=== PATIENT | female | born 1980 | race Hispanic/Latino ===

== ENCOUNTER 2016-05-17 14:37 | Emergency (ER) | payer OTHER ==
[~2016-05-17] VITALS: Ht 157.5 cm; Wt 98.6 kg
[~2016-05-17 14:37] MED LIST: MTC10T1 PO; NOMED; OXYC-176 PO
[2016-05-17 14:39] VITALS: BP 151/96; PULSE 74; RESP 24; O2SAT 97
--- NOTE | 2016-05-17 14:59 | ED.REPORT ---
HPI-Abd Pain F Under 41 Date of Service May 17, 2016 ED Provider: Issa Keenan MD A 35 year old female presents to the ED complaining of abdominal pain that began earlier this morning. Patient also reports flank pain. Her symptoms have been constant since onset and her pain is not relieved by anything. She denies any similar previous episode of pain. Patient denies fever, dysuria, hematuria or recent injury. Patient had a previous kidney infection but states that this pain is worse. She denies any chance of . Nursing Notes Stated Complaint: RIGHT LOWER BACK AND ABDOMINAL PAIN Chief Complaint: Female Abdominal Pain Nursing Notes Reviewed: Yes Allergies: Coded Allergies: acetaminophen (Verified Adverse Reaction, Severe, vomiting (CAN TAKE PERCOCET & CODEINE), 01/03/13) hydrocodone bitartrate (Verified Adverse Reaction, Severe, vomiting (CAN TAKE PERCOCET & CODEINE), 01/03/13) Scheduled Metoclopramide-Expunged Drug, Do Not Renew! (Reglan-Expunged Drug, Do Not Renew! ) 10 Mg Tablet 10 MG PO QID Oxycodone/APAP-Expunged Drug, Do Not Renew! (Percocet 5/325-Expunged Drug, Do Not Renew!) 1 Each Tablet 1-2 TAB PO Q4H For Pain. Miscellaneous Medications No Historical Medication (No Historical Medication) Ea General Time Seen by MD: 14:58 Chief Complaint Abdominal pain Hx Obtained From: Patient Arrived By: Walk-in Sudden in Onset?: No Onset Occurred: 1 - 4 hours ago Symptom Duration: Since onset Progression since Onset: Constant Location: : Abdomen lower: Flank left: Flank right Quality: Painful Severity: Current: Moderate Severity: Maximum: Moderate Associated with: Denies: Dysuria, Fever, Hematuria Pertinent Negative: Pt denies other symptoms Recent Healthcare: No recent doctor visit, No recent hospitalization Past Medical History Past Medical History None reported. Past Surgical History Reports: Tubal ligation Smoking History Unknown if Ever Smoker Social History Other Social History: Good social support, Local resident Ambulatory Status Independent Review of Systems Constitutional: Denies: Chills, Fever Respiratory: Denies: Shortness of breath Cardiovascular: Denies: Chest pain GI: Reports: Abdominal pain, Denies: Nausea, Vomiting Female: Reports: Flank pain, Denies: Dysuria, Hematuria, Complete sys rev & neg: except as marked. Neurologic: Denies: Change LOC Physical Exam Initial Vital Signs Vital Signs (First) Date Time Temp Pulse Resp B/P Pulse Ox O2 Delivery O2 Flow Rate FiO2 05/17/16 14:39 37.4 74 24 151/96 97 Room Air Initial VS: Reviewed Head / Eyes: Atraumatic, Normocephalic, PERRL Extremities: Vascular intact, Neuro intact, No swelling, No tenderness Skin: Warm, Dry, No cyanosis Neurologic: Alert, Oriented, Nonfocal Psychiatric: Mood/affect normal, Behavior normal, Normal thought content General/Constitutional: Awake, Alert GENERAL: Patient is standing and rocking back and forth Respiratory / Chest: Atraumatic, Breath sounds NL, Breath sounds = bilat Cardiovascular: Heart rate NL, Regular rhythm, Heart sounds NL Abdomen: Atraumatic, Soft, Non-tender Back: Atraumatic Interpretation & Diagnostics Lab Results Interpretation Result Diagram: 05/17/16 1505 05/17/16 1505 Test 05/17/16 15:05 White Blood Count 9.8th/mm3 (3.8-10.1) Red Blood Count 4.97mil/mm3 (3.90-5.20) Hemoglobin 14.2g/dL (12.0-15.6) Hematocrit 41.2% (35.0-46.0) Mean Corpuscular Volume 82.9fL (81-100) Mean Corpuscular Hemoglobin 28.6pg (27.0-35.0) Mean Corpuscular Hemoglobin Concent 34.5% (32.0-37.0) Red Cell Distribution Width 13.2% (12.3-15.4) Platelet Count 177bil/L (150-400) Neutrophils (%) (Auto) 73.9% (40-74) Lymphocytes (%) (Auto) 15.3% (14-46) Monocytes (%) (Auto) 8.2% (4-12) Eosinophils (%) (Auto) 2.0% (0-5) Basophils (%) (Auto) 0.4% (0-3) Sodium Level 139mEq/L (134-144) Potassium Level 3.8mEq/L (3.5-5.2) Chloride Level 104mEq/L (97-108) Carbon Dioxide Level 21mmol/L (18-29) Blood Urea Nitrogen 15mg/dL (6-20) Creatinine 0.73mg/dL (0.57-1.00) Estimat Glomerular Filtration Rate 131mL/min (>59) Glucose Level 108mg/dL (60-99) Calcium Level 8.5mg/dL (8.5-10.1) Total Bilirubin 0.3mg/dL (0.0-1.2) Aspartate Amino Transf (AST/SGOT) 18U/L (0-50) Alanine Aminotransferase (ALT/SGPT) 16U/L (0-32) Alkaline Phosphatase 65U/L (25-150) Total Protein 7.4g/dL (6.4-8.4) Albumin 4.1g/dL (3.4-5.0) Hold Hernandez Top Tube Received (Received) CT Abd / Pelvis Interpretation IMPRESSION: 6 mm distal right ureteral stone causing moderate to severe right-sided hydronephrosis. Dictated by: Patricia Chamberlain MD, PhD on 05/17/2016 at 15:47 Study type: Abdominal CT no contrast Interpretation / Wet Read by: Interpret - Radiologist Re-Eval/Medical Decision Re-Evaluation/Progress : Time of Eval: 15:57 Patient Status: Condition improved Re-Evaluation/Progress Note: Patient is rechecked. She is informed of her CT results and intended treatment plan to discharge. All of her questions are addressed. Counseled Regarding: Diagnosis, Lab results, Need for follow-up, When/why to return to ED Discharge & Departure Primary Impression: Ureterolithiasis Disposition: Home Discharge Condition All VS Reviewed: Yes Condition: Stable Patient Instructions: Nephrolithiasis (ED) Additional Instructions: Thank you for trusting us with your care this evening. Your emergency department evaluation today included interview, examination, lab work and abdominal CT. Your CT results revealed a 6 mm ureteral "kidney" stone. Please take ibuprofen 800 mg every 8 hours and Percocet as directed for more severe pain and do not drink drive or use acetaminophen while on this medication. Schedule an appointment with your primary care provider in the next 2-3 days for a recheck if symptoms have not improved. You may require surgery if the stone does not pass on it's own, please see referral for urologic surgery. Please return to the emergency department for any new or worsening symptoms, especially fever. Referrals: NOPCP (PCP) Rom Luna MD [facility] Scribe Attestation Portions of this note were transcribed by Adeline Mckee. I, Dr. Keenan personally performed the history, physical exam and medical decision-making; I reviewed and confirmed the accuracy of the information in the transcribed note. Signed by: Lexis Riojas, 05/17/16 1600. copies to: Rom Luna MD, Kirk H MD May 17, 2016 14:59 ADELINE MCKEE May 17, 2016 15:06
[2016-05-17] MEDS ORDERED: 0.9% Sodium Chloride 1,000 ML IV ONE (15:04)
[2016-05-17] MEDS ORDERED: HYDROmorphone 0.5 mg/0.5 mL iSecure Syringe IVPUSH PRN (15:05)
[2016-05-17] MEDS ORDERED: Ondansetron 2 mg/mL 2 mL Inj IVPUSH PRN (15:05)
[2016-05-17 15:13] LABS: BASOPHILS % (AUTO) 0.4 % (0-3); MONOCYTES % (AUTO) 8.2 % (4-12); Mean Corpuscular Hemoglobin 28.6 pg (27.0-35.0); Mean Corpuscular Volume 82.9 fL (81-100); NEUTROPHILS % (AUTO) 73.9 % (40-74); Platelet Count 177 bil/L (150-400)
--- NOTE | 2016-05-17 15:52 | DRSVH ---
PROCEDURE: CT KUB ([id number]) INDICATIONS: RIght flank pain TECHNIQUE: Noncontrast 5 mm thick sections acquired from the diaphragms to the symphysis. 5 mm thick coronal an d sagittal reformats were then performed. For radiation dose reduction, the following was used: aut omated exposure control, adjustment of mA and/or kV according to patient size. COMPARISON: None. FINDINGS: Image quality: Excellent. Lung bases: Lung bases are clear of acute opacities. Calcified granulomas noted in the visualized r ight lung. Heart size is normal. Urinary system: Both kidneys are normal in size. 6 mm stone is noted in the distal right ureter cau sing moderate to severe right-sided hydroureteronephrosis. Bladder wall thickness is normal; no calc ified bladder stones. Other solid organs: Liver and spleen are normal in size. Gallbladder is within normal limits. Panc reas is normal in contours. No adrenal nodules. Peritoneum and bowel: Unenhanced bowel loops demonstrate normal wall thickness and caliber. No free fluid or air. The appendix is not definitely visualized, however, no inflammatory changes noted robert cent to the cecum. Nodes and vessels: No retroperitoneal or mesenteric adenopathy by size criteria. Aorta and inferior vena cava are normal in caliber. Abdominal wall: No ventral hernias. Pelvis: No free pelvic fluid. No inguinal hernias or adenopathy. Bones: No suspicious bony lesions. No vertebral body compression fractures. IMPRESSION: 6 mm distal right ureteral stone causing moderate to severe right-sided hydronephrosis. Dictated by: Patricia Chamberlain MD, PhD on 05/17/2016 at 15:47 Approved by: Patricia Chamberlain MD, PhD on 05/17/2016 at 15:51
[2016-05-17] MEDS ORDERED: ONDA4TAB9 PO (16:24)
[2016-05-17] MEDS ORDERED: OXYC-407 PO (16:24)
[2016-05-17] MEDS ORDERED: TAMS0.4C98 PO (16:24)
[2016-05-17 16:41] VITALS: BP 150/88; PULSE 64; RESP 16; O2SAT 97; O2SAT 98
== END 2016-05-17 16:42 | disposition home or self-care (01) ==
LOC: SED 14:37
DX: N20.1 Calculus of ureter (principal); Z88.6 Allergy status to analgesic agent; Z88.5 Allergy status to narcotic agent
CPT/HCPCS: 36415; 74176; 80053; 81025; 85025; 96361; 96374; 96375; 99285; J1170; J2405; J7030